=== PATIENT | female | born 1985 | race African-American/Black ===

== ENCOUNTER 2022-04-19 14:15 | Emergency (ER) | payer OTHER ==
[~2022-04-19] VITALS: Ht 170.2 cm; Wt 122.0 kg
[2022-04-19 17:33] LABS: BASOPHILS % 0.5 % (0.0-2.0); EOSINOPHILS % 1.8 % (0.0-5.0); HEMATOCRIT. 44.5 % (36.0-48.0); HEMOGLOBIN. 14.9 g/dL (12.0-16.0); LYMPHOCYTES % 24.2 % (20.0-50.0); MEAN CORPUSCULAR HEMOGLOBIN 29.5 pg (28.0-32.0); MEAN CORPUSCULAR VOLUME 88.3 fL (81.0-99.0); MEAN PLATELET VOLUME 9.1 fl (7.4-10.4); MONOCYTES % 10.4 % (2.0-8.0); NEUTROPHILS % 63.1 % (40.0-76.0); PLATELET 186 x1000/uL (130-400); RED BLOOD CELL COUNT 5.04 mill/uL (4.2-5.4); RED CELL DISTRIBUTION WIDTH 13.4 % (11.6-14.6)
[2022-04-19 17:41] LABS: CHLORIDE 104 mEq/L (98-107)
[2022-04-19] MEDS ORDERED: KETOROLAC 60MG/2ML VIAL IM ONE (18:00)
[2022-04-19 18:52] VITALS: BP 101/73
[2022-04-19] MEDS ORDERED: IBUP-2029 MT (21:08)
== END 2022-04-19 21:00 | disposition home or self-care (01) ==
LOC: ER 14:15
DX: R07.89 Other chest pain (principal); Z98.890 Other specified postprocedural states
CPT/HCPCS: 36415; 71045; 80053; 81025; 84484; 85025; 96372; 99284; J1885

== ENCOUNTER 2023-07-28 14:20 | Emergency (ER) | payer MEDICAID, OTHER ==
[~2023-07-28] VITALS: Ht 170.2 cm; Wt 132.0 kg
[~2023-07-28 14:20] MED LIST: IBUP-2029 MT
[2023-07-28 14:36] VITALS: BP 122/77; PULSE 84; RESP 16; TEMP 98.6; O2SAT 99
[2023-07-28] MEDS: KETOROLAC 60MG/2ML VIAL IM ONE (15:44)
[2023-07-28] MEDS ORDERED: IBUP-2028 MT (15:50)
== END 2023-07-28 16:25 | disposition home or self-care (01) ==
LOC: ER 14:20
DX: S93.402A Sprain of unspecified ligament of left ankle, initial encounter (principal); Z98.890 Other specified postprocedural states; X58.XXXA Exposure to other specified factors, initial encounter; Y93.89 Activity, other specified; Y92.89 Other specified places as the place of occurrence of the external cause; Y99.8 Other external cause status
CPT/HCPCS: 81025; 73610; 96372; 99283; J1885; Z7610